=== PATIENT | male | born 1950 | race Caucasian/White ===

== ENCOUNTER 2018-05-28 20:45 | Emergency (ER) | payer OTHER, SELFPAY ==
[2018-05-28 20:46] VITALS: BP 169/91; PULSE 64; RESP 16; TEMP 36.7; O2SAT 97; BMI 32.1
[2018-05-28 20:54] VITALS: BP 184/91; PULSE 62; RESP 16; O2SAT 95
--- NOTE | 2018-05-28 21:08 | RAD_ITS ---
STUDY: X-RAY CHEST REASON FOR EXAM: Male, 67 years old. Feeling of foreign body in the throat TECHNIQUE: PA and lateral views of the chest. COMPARISON: None. FINDINGS: No radiopaque foreign body is noted The lungs are clear and expanded. There is no demonstrated pleural abnormality. Normal size heart. Normal mediastinum and cali. Normal visualized pulmonary arteries. Normal visualized aortic arch and descending thoracic aorta. Normal visualized thoracic spine. Normal visualized ribs, clavicles, and shoulders. There is no demonstrated abnormality of the visualized soft tissue structures of the upper abdomen. RAD/Chest PA and Lateral IMPRESSION: Normal x-ray examination of the chest. Electronically Signed: Price An DO at 21:55 EDT Tel , Service support ,
--- NOTE | 2018-05-28 22:36 | ED.VISSUMM ---
- ER Visit Summary Date of Service: 05/28/18 Chief Complaint: Foreign body sensation History of Present Illness: The patient is a 67 M with a foreign body sensation in his throat. He was eating chili and thinks he got a piece of meat or a being in his throat. He had some coughing and he also induced emesis, but the sensation has persisted. He is able to drink and is handling secretions. He denies shortness of breath. He has never had this before. Physical Examination: Afebrile and vital signs unremarkable. Patient is sitting upright and appears comfortable. Breathing comfortably. Normal speech. Moving comfortably. HEENT exam unremarkable. He does have postoperative uvulectomy changes. No foreign bodies are visualized. No lymphadenopathy. Good range of motion of his neck. Lungs are clear. Heart is regular. Test Results: Chest x-ray was unremarkable. Emergency Department Course and Treatment: Patient was reevaluated after the chest x-ray. No interval change. He exhibits no coughing when I am in the room. He is sitting and breathing comfortably. Speech is normal. I have low suspicion for esophageal foreign body. I do not believe he aspirated anything. His foreign body sensation is in his throat. 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 The patient has seen an ENT doctor in [place]. I was able to contact his ENT, Dr. Rinaldi. He advised that it sounds reasonable for the patient to follow-up tomorrow and was able to get an appointment at 9:30 in the morning. He also advised that he could see the patient at [facility]. I presented these options to the patient. He seems to be doing okay and would like to go home and follow-up tomorrow at 930. I advised the patient to return right away if he has any new or worsening symptoms. Patient voiced understanding and agreement with the plan. All questions were answered. Treatment Plan: As above Disposition: Discharge Impression: 1. Pharyngeal foreign body This note was generated with [employer] dictation software. It may contain incorrect words, spelling, and punctuation that were not noted in review of the chart prior to signing ED Disposition - Plan for ED Patient: Chief Complaint: Foreign Body Referrals: [facility] Doctor,Out of [Primary Care Provider] -
--- NOTE | 2018-05-28 22:39 | ED.DCSUM_ITS ---
- ER Visit Summary Date of Service: 05/28/18 Chief Complaint: Foreign body sensation History of Present Illness: The patient is a 67 M with a foreign body sensation in his throat. He was eating chili and thinks he got a piece of meat or a being in his throat. He had some coughing and he also induced emesis, but the sensation has persisted. He is able to drink and is handling secretions. He denies shortness of breath. He has never had this before. Physical Examination: Afebrile and vital signs unremarkable. Patient is sitting upright and appears comfortable. Breathing comfortably. Normal speech. Moving comfortably. HEENT exam unremarkable. He does have postoperative uvulectomy changes. No foreign bodies are visualized. No lymphadenopathy. Good range of motion of his neck. Lungs are clear. Heart is regular. Test Results: Chest x-ray was unremarkable. Emergency Department Course and Treatment: Patient was reevaluated after the chest x-ray. No interval change. He exhibits no coughing when I am in the room. He is sitting and breathing comfortably. Speech is normal. I have low suspicion for esophageal foreign body. I do not believe he aspirated anything. His foreign body sensation is in his throat. 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 The patient has seen an ENT doctor in [place]. I was able to contact his ENT, Dr. Rinaldi. He advised that it sounds reasonable for the patient to follow-up tomorrow and was able to get an appointment at 9:30 in the morning. He also advised that he could see the patient at [facility]. I presented these options to the patient. He seems to be doing okay and would like to go home and follow-up tomorrow at 930. I advised the patient to return right away if he has any new or worsening symptoms. Patient voiced understanding and agreement with the plan. All questions were answered. Treatment Plan: As above Disposition: Discharge Impression: 1. Pharyngeal foreign body This note was generated with [employer] dictation software. It may contain incorrect words, spelling, and punctuation that were not noted in review of the chart prior to signing ED Disposition - Plan for ED Patient: Chief Complaint: Foreign Body Referrals: [facility] Doctor,Out of [Primary Care Provider] -
--- NOTE | 2018-05-28 22:39 | ED.DEP ---
ED Disposition - Plan for ED Patient: Chief Complaint: Foreign Body Additional Instructions: Follow-up with your ENTs office tomorrow at 9:30 AM. Return right away for new or worsening issues.
[2018-05-28 22:43] VITALS: BP 152/78; PULSE 65; RESP 14; O2SAT 98
== END 2018-05-28 23:00 | disposition home or self-care (01) ==
LOC: ED 21:13
PROVIDERS: Emergency Provider Emergency Medicine
DX: T17.228A Food in pharynx causing other injury, initial encounter (principal); X58.XXXA Exposure to other specified factors, initial encounter; Y93.9 Activity, unspecified; Y92.9 Unspecified place or not applicable; Y99.9 Unspecified external cause status; Z79.82 Long term (current) use of aspirin; Z79.899 Other long term (current) drug therapy
CPT/HCPCS: 71046; 99282